=== PATIENT | male | born 1950 | race Two or more races ===

== ENCOUNTER 2024-02-06 08:00 | Outpatient (CLI) | payer OTHER ==
[~2024-02-06] VITALS: Ht 213.4 cm; Wt 5.0 kg
[2024-02-06] MEDS ORDERED: METFORMIN HCL500 M3 (15:33)
[2024-02-06 16:20] VITALS: BP 148/89
== END 2024-02-06 08:01 | disposition home or self-care (01) ==
LOC: EKG 08:00 → SURH 02-13 12:45 → EDSTATUS 02-13 12:45 → SURH 02-13 13:00
PROVIDERS: ATTEND Surgery
DX: C19 Malignant neoplasm of rectosigmoid junction (principal); R59.0 Localized enlarged lymph nodes; K92.1 Melena

== ENCOUNTER 2024-02-15 09:22 | Inpatient (IN) | payer OTHER ==
[~2024-02-15] VITALS: Ht 170.2 cm; Wt 72.6 kg
[~2024-02-15 09:22] MED LIST: METFORMIN HCL500 M3
--- NOTE | 2024-02-15 09:32 | NUR ---
PACIENTE ALERTA Y ORIENTADO X 3. REFIERE OPERACION POR DR Dagoberto LOERA PARA EL DANELLE Y MYLES LE INDICO PASAR HOY POR ER PARA ADMISION. PACIENTE REFIERE DAIJA DE DOLOR. INDICA TENER MASA EN EL COLON CANCEROSA.
[2024-02-15] MEDS ORDERED: 0.9 % SODIUM CHLORIDE 1,000 ML IV STA (10:05)
[2024-02-15 10:23] LABS: HEMATOCRIT 46.5 % (39.0-48.0); HEMOGLOBIN 16.3 g/dL (13-16.00); MEAN CELL VOLUME 91.9 fL (80.0-100.00); MEAN CORPUSCULAR HEMOGLOBIN 32.2 pg (27.00-32.0); MEAN CORPUSCULAR HGB CONC 35.1 g/dl (32.0-36.0); PLATELET COUNT 281 K/uL (150-450); RED BLOOD COUNT 5.06 M/uL (4.00-6.00); RED CELL DISTRIBUTION WIDTH 14.4 % (11.5-14.5)
--- NOTE | 2024-02-15 10:28 | NUR ---
SE ORIENTA PTE SOBRE TX A SEGUIR, EL MISMO REFIERE ENTENDER. EL MISMO REFIERE ENTENDER. SE BARBARA MUESTRA DE LAB, SE CANALIZA Y SE COLOCA IV FLUIDS. SE REALZIA EKG Y SE PRESENTA A DR GARCIA
[2024-02-15 11:01] LABS: INR 1.06; PARTIAL THROMBOPLASTIN TIME 27.4 SECONDS (22.0-34.0); PROTHROMBIN TIME 11.5 SECONDS (9.0-11.5)
[2024-02-15 11:02] LABS: PH,URINE 5.5 (5.0-8.0); URINE APPEARANCE Clear; URINE BILIRRUBIN Negative (NEGATIVE); URINE BLOOD Negative; URINE COLOR Yellow; URINE GLUCOSE Negative (NEGATIVE); URINE KETONE Negative (NEGATIVE); URINE LEUKOCYTE Negative; URINE NITRATE Negative; URINE PROTEIN Negative (NEGATIVE); URINE UROBILINOGEN 0.2 E.U./dl
[2024-02-15 11:07] LABS: URINE BACTERIA 11.3 uL (0.0-1933); URINE EPITHELIAL CELLS 1.6 uL (0.0-38.8); URINE RBC 4.2 uL (0.0-20.8); URINE WBC 4.1 uL (0.0-23.2)
[2024-02-15 11:23] LABS: ALBUMIN 3.7 gm/dL (3.4-5.0); BILIRUBIN TOTAL 0.44 mg/dL (0.3-1.2); BILIRUBIN,CONJUGATED 0.14 mg/dL (0.0-0.2); BILIRUBIN,UNCONJUGATED 0.3 mg/dL (0.0-0.6); CALCIUM 9.2 mg/dL (8.5-10.1); CREATININE SERUM 0.95 mg/dL (0.70-1.30); GFR 77.93; POTASSIUM 3.96 mEq/L (3.5-5.1); TOTAL PROTEIN 7.3 gm/dL (6.4-8.2)
[2024-02-15] MEDS ORDERED: 0.9 % SODIUM CHLORIDE 1,000 ML IV SCH (18:15)
[2024-02-15] MEDS ORDERED: PANTOPRAZOLE SODIUM 40 MG/VIAL VIAL IV SCH (18:23)
[2024-02-15] MEDS ORDERED: INSULIN LISPRO 1,000 UNIT/10 ML UNITS SUBCUTANEO PRN (18:30)
[2024-02-15] MEDS ORDERED: ACETAMINOPHEN 500 MG GEL..CAP PO PRN (18:30)
[2024-02-15] MEDS ORDERED: DEXTROSE 50 % IN WATER 0.5 G/ML DISP.SYRIN IV PRN (18:30)
[2024-02-15] MEDS ORDERED: ONDANSETRON HCL 4 MG in 0.9 % SODIUM CHLORIDE 50 ML IV PRN (18:30)
[2024-02-15 19:20] VITALS: BP 121/79; O2SAT 98
[2024-02-16 00:47] VITALS: BP 113/70; O2SAT 97
[2024-02-16 03:50] VITALS: BP 115/67; O2SAT 96
[2024-02-16 07:40] VITALS: BP 134/82; O2SAT 97
[2024-02-16 16:00] VITALS: BP 125/27; O2SAT 97
[2024-02-16] MEDS ORDERED: NEOMYCIN SULFATE 500 MG TABLET PO STA (16:45)
[2024-02-16] MEDS ORDERED: NEOMYCIN SULFATE 500 MG TABLET PO ONE (16:45)
[2024-02-16] MEDS ORDERED: METROnidazole 500 MG TABLET PO STA (16:46)
[2024-02-16] MEDS ORDERED: BISACODYL 5 MG TABLET.EC PO NR (17:00)
[2024-02-16] MEDS ORDERED: POLYETHYLENE GLYCOL 3350 238 GM POWDER PO NR (17:00)
[2024-02-17] VITALS: BP 106/73; O2SAT 96
[2024-02-17] MEDS ORDERED: ERTAPENEM SODIUM 1,000 MG VIAL IV NR (06:00)
[2024-02-17] MEDS ORDERED: ENOXAPARIN SODIUM 40 MG/0.4 ML SYRINGE SUBCUTANEO NR (06:00)
[2024-02-17 09:08] VITALS: BP 126/81; O2SAT 97
[2024-02-17] MEDS ORDERED: ONDANSETRON HCL 2 MG/ML VIAL IV PRN (15:45)
[2024-02-17] MEDS ORDERED: DEXTROSE 50 % IN WATER 0.5 G/ML DISP.SYRIN IV PRN (15:45)
[2024-02-17] MEDS ORDERED: MORPHINE SULFATE 4 MG/ML CARTRIDGE IV PRN (15:45)
[2024-02-17] MEDS ORDERED: RINGERS SOLUTION,LACTATED 1,000 ML IV SCH (15:45)
[2024-02-17] MEDS ORDERED: OxyCODONE HCL 5 MG TABLET (ROXICODONE) PO PRN (15:45)
[2024-02-17] MEDS ORDERED: SUGAMMADEX SODIUM 200 MG/2 ML VIAL IV ONE (16:00)
[2024-02-17 17:00] LABS: HEMATOCRIT 47.2 % (39.0-48.0); HEMOGLOBIN 15.3 g/dL (13-16.00); MEAN CORPUSCULAR HEMOGLOBIN 30.6 pg (27.00-32.0); MEAN CORPUSCULAR HGB CONC 32.5 g/dl (32.0-36.0); PLATELET COUNT 323 K/uL (150-450); RED BLOOD COUNT 5.02 M/uL (4.00-6.00); RED CELL DISTRIBUTION WIDTH 14.6 % (11.5-14.5)
[2024-02-17] MEDS ORDERED: POLYETHYLENE GLYCOL 3350 17 GM BLIST.PACK PO SCH (17:00)
[2024-02-17] MEDS ORDERED: HYOSCYAMINE SULFATE 0.125 MG TAB.SUBL SL SCH (17:00)
[2024-02-17] MEDS ORDERED: GABAPENTIN 300 MG CAPSULE PO SCH (17:00)
[2024-02-17] MEDS ORDERED: MORPHINE SULFATE 4 MG/ML VIAL IV ONE (17:05)
[2024-02-17 17:22] LABS: ALBUMIN 3.4 gm/dL (3.4-5.0); CALCIUM 8.5 mg/dL (8.5-10.1); CREATININE SERUM 1.04 mg/dL (0.70-1.30); GFR 70.2; PHOSPHOROUS 3.3 mg/dL (2.5-4.9); POTASSIUM 3.94 mEq/L (3.5-5.1)
[2024-02-17] MEDS ORDERED: PIPERACILLIN/TAZOBACTAM SODIUM 3.375 GM in 0.9 % SODIUM CHLORIDE 100 ML IV SCH (18:00)
[2024-02-17 18:29] VITALS: BP 123/78; O2SAT 97
[2024-02-17] MEDS ORDERED: ACETAMINOPHEN 500 MG GEL..CAP PO SCH (20:00)
[2024-02-17] MEDS ORDERED: FAMOTIDINE/PF 20 MG/2 ML VIAL IV PUSH SCH (21:00)
[2024-02-18] VITALS: BP 116/76; O2SAT 95
[2024-02-18 06:44] LABS: HEMATOCRIT 45.7 % (39.0-48.0); HEMOGLOBIN 15.4 g/dL (13-16.00); MEAN CELL VOLUME 92.9 fL (80.0-100.00); MEAN CORPUSCULAR HEMOGLOBIN 31.4 pg (27.00-32.0); MEAN CORPUSCULAR HGB CONC 33.8 g/dl (32.0-36.0); PLATELET COUNT 314 K/uL (150-450); RED BLOOD COUNT 4.92 M/uL (4.00-6.00); RED CELL DISTRIBUTION WIDTH 14.1 % (11.5-14.5)
[2024-02-18 07:08] LABS: ALBUMIN 3.7 gm/dL (3.4-5.0); CREATININE SERUM 0.86 mg/dL (0.70-1.30); GFR 87.41; MAGNESIUM 2.1 mg/dL (1.8-2.4); PHOSPHOROUS 3.6 mg/dL (2.5-4.9); POTASSIUM 4.64 mEq/L (3.5-5.1)
[2024-02-18 09:13] VITALS: BP 131/86; O2SAT 96
[2024-02-18 16:00] VITALS: BP 124/78; O2SAT 98
[2024-02-18] MEDS ORDERED: ENOXAPARIN SODIUM 40 MG/0.4 ML SYRINGE SUBCUTANEO SCH (17:00)
[2024-02-19 00:37] VITALS: BP 140/83; O2SAT 97
[2024-02-19 08:00] VITALS: BP 111/76; O2SAT 95
[2024-02-19] MEDS ORDERED: ENOXAPARIN SODIUM 40 MG/0.4 ML SYRINGE SUBCUTANEO SCH (09:00)
[2024-02-19 16:32] VITALS: BP 106/70; O2SAT 95
[2024-02-20] VITALS: BP 109/64; O2SAT 95
[2024-02-20 08:39] VITALS: BP 97/68; O2SAT 96
[2024-02-20 10:31] LABS: HEMATOCRIT 39.8 % (39.0-48.0); HEMOGLOBIN 13.1 g/dL (13-16.00); MEAN CELL VOLUME 93.8 fL (80.0-100.00); MEAN CORPUSCULAR HEMOGLOBIN 30.8 pg (27.00-32.0); MEAN CORPUSCULAR HGB CONC 32.9 g/dl (32.0-36.0); PLATELET COUNT 244 K/uL (150-450); RED BLOOD COUNT 4.24 M/uL (4.00-6.00); RED CELL DISTRIBUTION WIDTH 14.3 % (11.5-14.5)
[2024-02-20] MEDS ORDERED: INTESTINEX680 M1 PO (12:52)
[2024-02-20] MEDS ORDERED: ACETAMINOPHEN500 M1 PO (12:52)
[2024-02-20] MEDS ORDERED: NEURONTIN300 MG PO (12:52)
[2024-02-20 16:00] VITALS: BP 111/62; O2SAT 97
== END 2024-02-20 16:56 | disposition home or self-care (01) | DRG 330 ==
LOC: ER 09:24 → SURG 18:47
PROVIDERS: General Practice; Surgery; ADMIT Internal Medicine; ATTEND Internal Medicine
PROC: B24BZZZ Ultrasonography of Heart with Aorta (ICD-10-PCS; 2024-02-15)
PROC: 0DBP4ZZ Excision of Rectum, Percutaneous Endoscopic Approach (ICD-10-PCS; 2024-02-17)
PROC: 07BC4ZZ Excision of Pelvis Lymphatic, Percutaneous Endoscopic Approach (ICD-10-PCS; 2024-02-17)
PROC: 0DJD8ZZ Inspection of Lower Intestinal Tract, Via Natural or Artificial Opening Endoscopic (ICD-10-PCS; 2024-02-17)
PROC: 0DTN4ZZ Resection of Sigmoid Colon, Percutaneous Endoscopic Approach (ICD-10-PCS; principal; 2024-02-17 15:00)
DX: C19 Malignant neoplasm of rectosigmoid junction (principal); K65.4 Sclerosing mesenteritis; K92.2 Gastrointestinal hemorrhage, unspecified; K63.89 Other specified diseases of intestine; R59.0 Localized enlarged lymph nodes